=== PATIENT | female | born 1995 | race Caucasian/White ===

== ENCOUNTER 2018-05-27 08:17 | Emergency (ER) | END 2018-05-27 13:16 | disposition home or self-care (01) ==

== ENCOUNTER 2019-02-23 05:30 | Day surgery (SDC) | payer OTHER ==
[2019-02-22 16:10] VITALS: BMI 24.6
--- NOTE | 2019-02-22 21:01 | PREOPHP ---
DATE OF ADMISSION: 02/23/2019 HISTORY OF PRESENT ILLNESS: This is a 23-year-old female, 0, para 0. This patient had seen me for fertility purposes and she has been on control pills and metformin with history of PCO s yndrome and abnormal uterine bleeding. She started having heavy bleeding with tissue coming out of h er cervix bleeding very heavy, soaking pads every hour and nonstop menometrorrhagia. She had an ultr asound that revealed that the uterus was 9 cm with endometrial thickness of 16 mm that appears hetero geneous and both ovaries were normal with the heterogeneous borderline thickened endometrium and the patient has menometrorrhagia. She is advised for a fractional D and C for further diagnosis. PAST MEDICAL HISTORY: Healthy. She had breast implants in 12/2017. Otherwise, she has no pertinent medical history. REVIEW OF SYSTEMS: Negative for cardiovascular disease, lung disease, GI disease, endocrine disease. ALLERGIES: SHE IS NOT ALLERGIC TO ANY MEDICATION. SOCIAL HISTORY: She does not drink or smoke and no history of drugs. FAMILY HISTORY: Her mother with fibroids; otherwise negative and noncontributory family history. MEDICATIONS: She is not taking any medication except for her oral contraceptives at this time with a trial of Sprintec. PHYSICAL EXAMINATION: VITAL SIGNS: Stable. She is 5-foot, 1-inch. She weighs 130. Her blood pressure is 86/69 and her l ast normal period started in 11/2018 and being irregular with menometrorrhagia since. HEAD AND NECK: Normal. CHEST: Clear. HEART: Normal sinus rhythm. LUNGS: Clear. BREASTS: Soft, nontender, no masses with implants. HEART: Normal sinus rhythm. ABDOMEN: Soft, nontender, no masses. GENITALIA: With normal external genitalia. Uterus is retroverted, flexed, bulky, very painful on mo bilization with tissue at the internal os. Adnexa are negative. EXTREMITIES: Normal with normal pulses. No edema. DIAGNOSES: Intractable menometrorrhagia, possible incomplete versus hyperplastic endometriu m from polycystic ovary syndrome and impending anemia. PLAN: She is undergoing a fractional D and C. She has been advised of the possible risks and possib le complications of the procedure with alternatives and options. Written information was provided. She had no more questions and agreed to go ahead with the procedure with full understanding and no mo re questions. Dictated By: GIOVANNA HEATON MD [facility] Conf#: [id number] [facility]#: [id number]
[2019-02-23] VITALS (11 sets, daily range): BP systolic 97–128; BP diastolic 58–79; PULSE 88–106; RESP 13–18; Ht 154.9 cm; Wt 63.0 kg
[~2019-02-23] VITALS: Ht 154.9 cm; Wt 63.0 kg
[~2019-02-23 05:30] MED LIST: BIRTH CONTROL PO; HYDR-4011 PO; IBUP-1542 PO; IBUP-1561 PO; NORG1TAB79 ORAL; TAMS-14 PO
[2019-02-23] MEDS ORDERED: DEXTROSE 5%-LR 1,000 ML IV SCH (06:00)
[2019-02-23] MEDS ORDERED: CEFAZOLIN 2 GM/50 ML (PMX) 50 ML IVPB ONE (06:00)
[2019-02-23] MEDS: LACTATED RINGER'S 1,000 ML IV SCH ×2 (06:33→08:48)
--- NOTE | 2019-02-23 07:20 | PREAC ---
Date/Time of Note Date/Time of Note DATE: 02/23/19 TIME: 07:18 Anesthesia Eval and Record Evaluation Time Pre-Procedure Interview DATE: 02/23/19 TIME: 07:18 Age 23 Sex female NPO: 8 hrs Preoperative diagnosis missed Planned procedure d & c Past Medical History Past Medical History: None Heme: Anemia Surgery & Anesthesia Issues No known issue Meds Anticoagulation: No Beta Zeina within 24 hr: No Reason Beta Zeina not given: Pt. not on B-Zeina Reported Medications Norgestimate-Ethinyl Estradiol (Zsv-Jl-Jaqtmfrs Tablet) 1 Each Tablet, 1 TAB ORAL DAILY 02/23/19 Discontinued Reported Medications [ Control] No Conflict Check, PO DAILY 02/23/19 Discontinued Scripts Tamsulosin Hcl* (Flomax*) 0.4 Mg Cap.er.24h, 0.4 MG PO BID, #30 CAP Prov:SHELTON RIDLEY PA-C 05/27/18 Hydrocodone/Acetaminophen ([place] 5-325 Tablet) 1 Each Tablet, 1 TAB PO Q6H PRN for PAIN, #7 TAB Prov:SHELTON RIDLEY PA-C 05/27/18 Hydrocodone/Acetaminophen ([place] 5-325 Tablet) 1 Each Tablet, 1 TAB PO Q6H PRN for PAIN, #20 TAB Prov:BG STONE PA-C 04/07/17 Ibuprofen* (Ibuprofen*) 600 Mg Tablet, 600 MG PO Q6, #30 TAB Prov:BG STONE PA-C 04/07/17 Ibuprofen* (Motrin*) 400 Mg Tab, 400 MG PO Q6H PRN for PAIN AND OR ELEVATED TEMP, #30 Prov:BLANCA MOSCOSO PA-C 06/10/15 Current Medications Dextrose/Lactated Ringer's 1,000 ml @ 125 mls/hr Q8H IV ; Start 02/23/19 at 06 :00 Lactated Ringer's 1,000 ml @ 125 mls/hr Q8H IV Last administered on 02/23/19at 06:33; Admin Dose 125 MLS/HR; Start 02/23/19 at 06:30 Meds reviewed: Yes Allergies Coded Allergies: No Known Allergy (Unverified , 02/23/19) Allergies Reviewed: Yes Labs/Studies Labs Reviewed: Reviewed by anesthesiologist Result Diagram: 02/23/19 0600 Laboratory Tests 02/23/19 06:00 test: Positive (for missed ) Pre-procedure Exam Last vitals Vital Signs Date Temp Pulse Resp B/P (MAP) Pulse Ox O2 O2 Flow FiO2 Time Delivery Rate 02/23/19 97.5 91 18 97/58 (71) 97 Room Air 06:18 Airway: Adequate mouth opening, Adequate thyromental dist Mallampati: Mallampati I Teeth: Normal Lung: Normal Heart: Normal ASA Physical Status ASA physical status: 2 Emergency: None Planned Anesthetic General/MAC: LMA Pre-operative Attestations Prior to commencing anesthesia and surgery, the patient was re-evaluated, there was verification of: *The patient's identity *The results of appropriate recent lab work and preoperative vital signs *The above evaluation not changing prior to induction *Anesthetic plan, risk benefits, alternative and complications discussed with patient/family; questions answered; patient/family understands, accepts and wishes to proceed. CLAUDIA ANNE TALENT MANAGER Feb 23, 2019 07:20
[2019-02-23] MEDS ORDERED: FENTAnyl 50 MCG/ML VIAL ONE (07:30)
[2019-02-23] MEDS ORDERED: LIDOCAINE 2% (SDV) 5 ML INJ ONE (07:32)
[2019-02-23] MEDS ORDERED: PROPOFOL 20 ML ONE (07:32)
[2019-02-23] MEDS ORDERED: GLYCOPYRROLATE 0.4 MG INJ ONE (07:56)
[2019-02-23] MEDS ORDERED: ONDANSETRON 4 MG INJ ONE (07:56)
[2019-02-23] MEDS ORDERED: DEXAMETHASONE 4 MG/ML 5 ML INJ ONE (07:56)
[2019-02-23] MEDS ORDERED: ONDANSETRON 4 MG INJ IV PRN (08:30)
[2019-02-23] MEDS ORDERED: OXYCODONE/ACETAMINOPHEN (5/325) TAB PO PRN (08:30)
[2019-02-23] MEDS ORDERED: HYDROmorphONE 1 MG/5 ML IV SYRINGE IV PRN (08:30)
[2019-02-23] MEDS ORDERED: FENTAnyl 50 MCG/ML VIAL IV PRN ×2 (08:30)
--- NOTE | 2019-02-23 08:39 | PAC ---
Date/Time of Note Date/Time of Note DATE: 02/23/19 TIME: 08:37 Post-Anesthesia Notes Post-Anesthesia Note Last documented vital signs Vital Signs Date Temp Pulse Resp B/P (MAP) Pulse Ox O2 O2 Flow FiO2 Time Delivery Rate 02/23/19 97.5 91 18 97/58 (71) 97 Room Air 06:18 Activity: WNL Respiratory function: WNL Cardiovascular function: WNL Mental status: Baseline Pain reasonably controlled: Yes Hydration appropriate: Yes Nausea/Vomiting absent: Yes Comments BP 128/79 Sp02 100% HR 99% RR 12 Temp 99F CLAUDIA ANNE SUPERVISOR MACHINE SETTER Feb 23, 2019 08:38
[2019-02-23] MEDS: HYDROmorphONE 1 MG/5 ML IV SYRINGE IV PRN ×2 (08:43→08:48)
--- NOTE | 2019-02-23 08:43 | PD.PPDC ---
PAINT TRIMMER PIPE BOWLS Discharge Instruction Condition [id number] Patient Condition: [id number] Good Activity/Restrictions [id number] Activity: Jplox3m Normal Activity May Shower [id number] Restrictions: [id number] No Exercising No Lifting No Driving No Sexual Activity Nothing in the Vagina No Kennedy No Tampons, douche Follow-up Follow-up with Physician: 2, Week/Weeks Return to clinic for [id number] SALT REFINER Instructions: [id number] Fever greater than 101 Chills Worsening abdominal pain Excessive Vaginal Bleeding More than 2 pads per hour Unable to tolerate diet GIOVANNA HEATON MD Feb 23, 2019 08:43
[2019-02-23] MEDS ORDERED: KETOROLAC 30 MG INJ IV STA (08:55)
--- NOTE | 2019-02-23 08:56 | SIPON ---
Date/Time of Note Date/Time of Note DATE: 02/23/19 TIME: 08:53 Operative Report Preoperative Diagnosis Intractable menometrorrhagia Pelvic pain intractable early fibroid uterus. Rule out missed . Endometrial complex hyperplasia Postoperative Diagnosis Same Operation/Procedure Performed D&C Surgeon see signature line business services assistant None Anesthesia: general Estimated blood loss: 10 - 50 ml's Transfusion Required none Specimen Endometrial contents Grafts/Implants none Complications none GIOVANNA HEATON MD Feb 23, 2019 08:56
[2019-02-23] MEDS ORDERED: KETOROLAC 30 MG INJ ONE (08:57)
[2019-02-23] MEDS ORDERED: KETOROLAC 30 MG INJ IV PRN (09:00)
== END 2019-02-23 10:13 | disposition home or self-care (01) ==
LOC: SDS 05:30
PROVIDERS: ATTEND Obstetrics & Gynecology
DX: N92.1 Excessive and frequent menstruation with irregular cycle (principal); D25.9 Leiomyoma of uterus, unspecified; R10.2 Pelvic and perineal pain; N85.00 Endometrial hyperplasia, unspecified
CPT/HCPCS: 58120; 84703; 85025; 85610; 85730; 88305; J0690; J1100; J1170; J1885; J2405; J3010; Z7512; Z7610; J7121